=== PATIENT | male | born 1990 | race African-American/Black ===

== ENCOUNTER 2017-05-02 15:26 | Inpatient (IN) | payer MEDICAID ==
[~2017-05-02] VITALS: Ht 177.8 cm; Wt 86.2 kg
[2017-05-02] MEDS ORDERED: PHEN100C4 PO (15:30)
[2017-05-02] MEDS ORDERED: KEPP500 PO (15:30)
[2017-05-02] MEDS ORDERED: SODIUM CHLORIDE 0.9% 1,000 ML IV ONE (15:54)
[2017-05-02] MEDS ORDERED: LORAZEPAM 2MG/ML CPJ IM ONE (16:00)
[2017-05-02] MEDS ORDERED: LORAZEPAM 2MG/ML CPJ ONE (16:02)
[2017-05-02] MEDS ORDERED: MIDAZOLAM HCL 2 MG/2 ML VIAL IV ONE (18:30)
[2017-05-02 18:49] LABS: BASOPHILS % 0.8 % (0.0-2.0); EOSINOPHILS % 0.1 % (0.0-5.0); HEMATOCRIT. 43.5 % (42.0-52.0); HEMOGLOBIN. 14.4 g/dL (14.0-18.0); LYMPHOCYTES % 10.8 % (20.0-50.0); MEAN CORPUSCULAR HEMOGLOBIN 31.5 pg (28.0-32.0); MEAN PLATELET VOLUME 8.1 fl (7.4-10.4); MONOCYTES % 5.8 % (2.0-8.0); NEUTROPHILS % 82.5 % (40.0-76.0); PLATELET 234 x1000/uL (130-400); RED BLOOD CELL COUNT 4.58 mill/uL (4.7-6.1); RED CELL DISTRIBUTION WIDTH 14.2 % (11.6-14.6)
[2017-05-02 18:55] LABS: PARTIAL THROMBOPLASTIN TIME 26.6 sec (23.4-31.0); PROTHROMBIN TIME 10.4 sec (9.4-11.6)
[2017-05-02 18:56] LABS: CHLORIDE 106 mEq/L (98-107)
[2017-05-02] MEDS ORDERED: LEVETIRACETAM 500MG PREMIX 100 ML IV ONE (19:00)
[2017-05-02] MEDS ORDERED: LEVETIRACETAM 500MG TABLET PO ONE (19:00)
[2017-05-02 19:03] LABS: CARBON DIOXIDE 27 mEq/L (21-32); CREATINE KINASE 523 IU/L (39-308); ETHANOL BLOOD < 10 mg/dL
[2017-05-02 19:05] LABS: TROPONIN I < 0.02 ng/mL (0.00-0.04)
[2017-05-03 01:58] LABS: *AMPHETAMINES SCREEN URINE NEGATIVE (NEGATIVE); *BARBITURATES SCREEN URINE NEGATIVE (NEGATIVE); *BENZODIAZEPINES SCREEN URINE NEGATIVE (NEGATIVE); *COCAINE SCREEN URINE NEGATIVE (NEGATIVE); CANNABINOID URINE SCREEN PRESUMTIVE POSITIVE (NEGATIVE); METHADONE URINE SCREEN NEGATIVE (NEGATIVE); OPIATES URINE SCREEN NEGATIVE (NEGATIVE); PHENCYCLIDINE URINE SCREEN NEGATIVE (NEGATIVE)
[2017-05-03 02:23] VITALS: BP 99/46
[2017-05-03] MEDS ORDERED: SODIUM POLYSTYRENE SULFONATE 15 G/60 ML BOT PO NR (03:45)
[2017-05-03] MEDS ORDERED: LORAZEPAM 1MG TABLET PO PRN (03:45)
[2017-05-03 04:00] VITALS: BP 122/68
[2017-05-03] MEDS ORDERED: LEVETIRACETAM 500MG TABLET PO SCH (09:00)
== END 2017-05-03 06:44 | disposition left against medical advice (07) | DRG 53 ==
LOC: ER 15:29 → 6WST 18:47 → ENRESERV 05-03 00:07
PROVIDERS: ADMIT Internal Medicine; ATTEND Internal Medicine
DX: G40.89 Other seizures (principal); Z88.6 Allergy status to analgesic agent; Z53.21 Procedure and treatment not carried out due to patient leaving prior to being seen by health care provider; Z79.899 Other long term (current) drug therapy
CPT/HCPCS: 36415; 70450; 80053; 80185; 80305; 82550; 83690; 84484; 85025; 85610; 85730; 96365; 99291; G0482; J1953; J2060; J7030

== ENCOUNTER 2017-06-14 17:13 | Emergency (ER) | payer MEDICAID ==
[~2017-06-14] VITALS: Ht 182.9 cm; Wt 90.0 kg
[~2017-06-14 17:13] MED LIST: KEPP500 PO; PHEN100C4 PO
[2017-06-14 19:21] LABS: BASOPHILS % 1.2 % (0.0-2.0); EOSINOPHILS % 3.2 % (0.0-5.0); HEMATOCRIT. 41.8 % (42.0-52.0); LYMPHOCYTES % 37.1 % (20.0-50.0); MEAN CORPUSCULAR VOLUME 95.2 fL (80.0-94.0); MONOCYTES % 9.9 % (2.0-8.0); NEUTROPHILS % 48.6 % (40.0-76.0); PLATELET 211 x1000/uL (130-400); RED BLOOD CELL COUNT 4.39 mill/uL (4.7-6.1); RED CELL DISTRIBUTION WIDTH 13.6 % (11.6-14.6)
[2017-06-14 19:24] LABS: CHLORIDE 105 mEq/L (98-107)
[2017-06-14 19:31] LABS: CARBON DIOXIDE 29 mEq/L (21-32)
[2017-06-14] MEDS ORDERED: LEVETIRACETAM 500MG PREMIX 100 ML IV NR (20:45)
[2017-06-14] MEDS ORDERED: SODIUM CHLORIDE 0.9% 1,000 ML IV NR (20:45)
[2017-06-14] MEDS ORDERED: METOCLOPRAMIDE HCL 10MG/2ML VIAL IV NR (20:45)
[2017-06-14] MEDS ORDERED: DIPHENHYDRAMINE 50MG/ML VIAL IV NR (20:45)
[2017-06-14] MEDS ORDERED: FENTANYL CITRATE/PF 50MCG/ML 2ML VIAL IV NR (20:45)
[2017-06-14 23:00] VITALS: BP 122/74
== END 2017-06-14 23:30 | disposition home or self-care (01) ==
LOC: ER 17:13
DX: G40.909 Epilepsy, unspecified, not intractable, without status epilepticus (principal); K40.90 Unilateral inguinal hernia, without obstruction or gangrene, not specified as recurrent; R51 Headache; Z88.6 Allergy status to analgesic agent; Z88.5 Allergy status to narcotic agent; Z91.14 Patient's other noncompliance with medication regimen
CPT/HCPCS: 36415; 80053; 85025; 96361; 96365; 96375; 99284; J1200; J1953; J3010

== ENCOUNTER 2017-06-17 11:08 | Emergency (ER) | payer MEDICAID ==
[~2017-06-17] VITALS: Ht 177.8 cm; Wt 68.0 kg
[2017-06-17] MEDS ORDERED: SODIUM CHLORIDE 0.9% 1,000 ML IV ONE (11:21)
[2017-06-17] MEDS ORDERED: LEVETIRACETAM 500MG PREMIX 100 ML IV ONE (11:30)
[2017-06-17 11:37] LABS: BASOPHILS % 0.3 % (0.0-2.0); EOSINOPHILS % 0.1 % (0.0-5.0); HEMATOCRIT. 47.2 % (42.0-52.0); HEMOGLOBIN. 15.7 g/dL (14.0-18.0); LYMPHOCYTES % 7.9 % (20.0-50.0); MEAN CORPUSCULAR HEMOGLOBIN 31.9 pg (28.0-32.0); MEAN CORPUSCULAR VOLUME 95.9 fL (80.0-94.0); MEAN PLATELET VOLUME 7.8 fl (7.4-10.4); MONOCYTES % 6.9 % (2.0-8.0); NEUTROPHILS % 84.8 % (40.0-76.0); PLATELET 227 x1000/uL (130-400); RED BLOOD CELL COUNT 4.92 mill/uL (4.7-6.1); RED CELL DISTRIBUTION WIDTH 13.8 % (11.6-14.6)
[2017-06-17 11:56] LABS: CARBON DIOXIDE 25 mEq/L (21-32); CHLORIDE 102 mEq/L (98-107); ETHANOL BLOOD < 10 mg/dL
[2017-06-17 11:57] LABS: CARBAMAZEPINE < 0.5 ug/mL (4-12); PHENOBARBITAL < 2.1 ug/mL (15.0-40.0); VALPROIC ACID < 3.0 ug/mL (50-100)
[2017-06-17] MEDS ORDERED: PHENYTOIN SODIUM EXTENDED 100MG CAPSULE PO ONE (12:30)
[2017-06-17] MEDS ORDERED: ACETAMINOPHEN 325MG TABLET PO ONE (12:30)
[2017-06-17 12:48] LABS: CREATINE KINASE 2635 IU/L (39-308)
[2017-06-17 13:05] VITALS: BP 140/72
== END 2017-06-17 13:05 | disposition home or self-care (01) ==
LOC: ER 11:16
DX: G40.909 Epilepsy, unspecified, not intractable, without status epilepticus (principal); R51 Headache; R79.89 Other specified abnormal findings of blood chemistry; Z88.5 Allergy status to narcotic agent; Z88.6 Allergy status to analgesic agent; M54.2 Cervicalgia
CPT/HCPCS: 36415; 80053; 80156; 80165; 80184; 80185; 82550; 84443; 85025; 93005; 96365; 99285; G0482; J1953; J7030

== ENCOUNTER 2018-07-20 13:44 | Emergency (ER) | payer MEDICAID ==
[~2018-07-20] VITALS: Ht 177.8 cm; Wt 100.0 kg
[2018-07-20 14:25] LABS: CLARITY URINE CLEAR (CLEAR); COLOR URINE YELLOW (YELLOW); KETONES URINE NEGATIVE (NEGATIVE); LEUKOCYTE ESTERASE URINE NEGATIVE (NEGATIVE); NITRITE URINE NEGATIVE (NEGATIVE); OCCULT BLOOD URINE NEGATIVE (NEGATIVE); PROTEIN URINE NEGATIVE (NEGATIVE); SPECIFIC GRAVITY URINE 1.014 (1.005-1.030); UROBILINOGEN URINE 0.2 E.U./dL (0.2-1.0)
[2018-07-20 14:41] LABS: *COCAINE SCREEN URINE NEGATIVE (NEGATIVE); CANNABINOID URINE SCREEN PRESUMTIVE POSITIVE (NEGATIVE); METHADONE URINE SCREEN NEGATIVE (NEGATIVE); OPIATES URINE SCREEN NEGATIVE (NEGATIVE); PHENCYCLIDINE URINE SCREEN PRESUMTIVE POSITIVE (NEGATIVE)
[2018-07-20 14:42] LABS: *AMPHETAMINES SCREEN URINE NEGATIVE (NEGATIVE)
[2018-07-20 14:43] LABS: *BARBITURATES SCREEN URINE NEGATIVE (NEGATIVE)
[2018-07-20 14:44] LABS: *BENZODIAZEPINES SCREEN URINE NEGATIVE (NEGATIVE)
[2018-07-20] MEDS ORDERED: SODIUM CHLORIDE 0.9% 1,000 ML IV ONE (15:53)
[2018-07-20] MEDS ORDERED: LORAZEPAM 2MG/ML CPJ IV ONE (16:00)
[2018-07-20] MEDS ORDERED: LEVETIRACETAM 500MG PREMIX 100 ML IV ONE (16:00)
[2018-07-20] MEDS ORDERED: LORAZEPAM 2MG/ML CPJ IM STA (16:10)
[2018-07-20 16:25] LABS: CHLORIDE 107 mEq/L (98-107)
[2018-07-20 16:29] LABS: ETHANOL BLOOD < 10 mg/dL
[2018-07-20] MEDS ORDERED: PHENYTOIN SODIUM 1,000 MG in SODIUM CHLORIDE 0.9% 100 ML IV ONE (17:00)
[2018-07-20 17:34] LABS: BASOPHILS % 1.7 % (0.0-2.0); EOSINOPHILS % 0.9 % (0.0-5.0); HEMATOCRIT. 46.2 % (42.0-52.0); HEMOGLOBIN. 15.2 g/dL (14.0-18.0); LYMPHOCYTES % 36.6 % (20.0-50.0); MEAN CORPUSCULAR VOLUME 94.3 fL (80.0-94.0); MONOCYTES % 9.4 % (2.0-8.0); NEUTROPHILS % 51.4 % (40.0-76.0); PLATELET 218 x1000/uL (130-400); RED CELL DISTRIBUTION WIDTH 13.1 % (11.6-14.6)
[2018-07-20 17:38] LABS: CHLORIDE 107 mEq/L (98-107)
[2018-07-20 20:03] VITALS: BP 128/77
== END 2018-07-20 20:07 | disposition home or self-care (01) ==
LOC: ER 13:44
DX: G40.909 Epilepsy, unspecified, not intractable, without status epilepticus (principal); S09.8XXA Other specified injuries of head, initial encounter; F16.129 Hallucinogen abuse with intoxication, unspecified; S50.312A Abrasion of left elbow, initial encounter; E87.5 Hyperkalemia; Z88.5 Allergy status to narcotic agent; Z88.6 Allergy status to analgesic agent; W01.0XXA Fall on same level from slipping, tripping and stumbling without subsequent striking against object, initial encounter; Y93.89 Activity, other specified; Y92.488 Other paved roadways as the place of occurrence of the external cause
CPT/HCPCS: 36415; 70450; 73080; 80048; 80053; 80185; 80305; 80320; 81003; 85025; 96374; 99284; J1165; J1953; J2060; J7030; J7050; G0480

== ENCOUNTER 2020-02-22 16:00 | Emergency (ER) | payer MEDICAID, OTHER ==
[~2020-02-22] VITALS: Ht 188 cm; Wt 100.0 kg
[2020-02-22] MEDS ORDERED: LEVETIRACETAM 1000MG/100ML 100 ML IV ONE (17:30)
[2020-02-22 18:05] LABS: CLARITY URINE CLEAR (CLEAR); COLOR URINE YELLOW (YELLOW); KETONES URINE TRACE (NEGATIVE); LEUKOCYTE ESTERASE URINE NEGATIVE (NEGATIVE); OCCULT BLOOD URINE 1+ (NEGATIVE); PROTEIN URINE TRACE (NEGATIVE); SPECIFIC GRAVITY URINE 1.017 (1.005-1.030); UROBILINOGEN URINE 0.2 E.U./dL (0.2-1.0)
[2020-02-22 18:16] LABS: *AMPHETAMINES SCREEN URINE PRESUMTIVE POSITIVE (NEGATIVE); *BARBITURATES SCREEN URINE NEGATIVE (NEGATIVE); *BENZODIAZEPINES SCREEN URINE PRESUMTIVE POSITIVE (NEGATIVE); *COCAINE SCREEN URINE NEGATIVE (NEGATIVE); METHADONE URINE SCREEN NEGATIVE (NEGATIVE); OPIATES URINE SCREEN NEGATIVE (NEGATIVE)
[2020-02-22 18:18] LABS: CHLORIDE 108 mEq/L (98-107)
[2020-02-22 18:18] LABS: CANNABINOID URINE SCREEN PRESUMTIVE POSITIVE (NEGATIVE); PHENCYCLIDINE URINE SCREEN NEGATIVE (NEGATIVE)
[2020-02-22 18:21] LABS: ETHANOL BLOOD < 10 mg/dL
[2020-02-22 19:40] LABS: BASOPHILS % 0.3 % (0.0-2.0); EOSINOPHILS % 0.1 % (0.0-5.0); HEMATOCRIT. 43.7 % (42.0-52.0); HEMOGLOBIN. 14.4 g/dL (14.0-18.0); LYMPHOCYTES % 8.2 % (20.0-50.0); MEAN CORPUSCULAR HEMOGLOBIN 31.5 pg (28.0-32.0); MEAN CORPUSCULAR VOLUME 95.6 fL (80.0-94.0); MEAN PLATELET VOLUME 8.7 fl (7.4-10.4); MONOCYTES % 6.8 % (2.0-8.0); NEUTROPHILS % 84.6 % (40.0-76.0); PLATELET 193 x1000/uL (130-400); RED BLOOD CELL COUNT 4.57 mill/uL (4.7-6.1); RED CELL DISTRIBUTION WIDTH 13.9 % (11.6-14.6)
[2020-02-22] MEDS ORDERED: PHENYTOIN 100 MG/4 ML UDC PO ONE (20:00)
[2020-02-22] MEDS ORDERED: PHENYTOIN SODIUM EXTENDED 100MG CAPSULE PO ONE (20:00)
[2020-02-22] MEDS ORDERED: LEVETIRACETAM 500MG TABLET PO ONE (20:15)
[2020-02-22 20:55] VITALS: BP 122/77
== END 2020-02-22 21:00 | disposition home or self-care (01) ==
LOC: ER 16:00
DX: G40.909 Epilepsy, unspecified, not intractable, without status epilepticus (principal); Z88.6 Allergy status to analgesic agent
CPT/HCPCS: 36415; 71045; 80053; 80185; 80305; 80320; 81003; 85025; 96365; 96366; 99285; J1953; G0480

== ENCOUNTER 2020-02-25 19:22 | Emergency (ER) | payer OTHER | END 2020-02-25 20:56 | disposition left against medical advice (07) | LOC: ER 19:22 | DX: Z53.21 Procedure and treatment not carried out due to patient leaving prior to being seen by health care provider (principal) ==

== ENCOUNTER 2022-01-14 08:47 | Emergency (ER) | payer OTHER ==
[~2022-01-14] VITALS: Ht 167.6 cm; Wt 78.0 kg
[2022-01-14 10:11] LABS: CHLORIDE 107 mEq/L (98-107)
[2022-01-14 10:17] LABS: BASOPHILS % 1.4 % (0.0-2.0); EOSINOPHILS % 4.4 % (0.0-5.0); HEMOGLOBIN. 14.2 g/dL (14.0-18.0); LYMPHOCYTES % 39.7 % (20.0-50.0); MEAN CORPUSCULAR HEMOGLOBIN 33.1 pg (28.0-32.0); MEAN CORPUSCULAR VOLUME 98.2 fL (80.0-94.0); MEAN PLATELET VOLUME 8.9 fl (7.4-10.4); MONOCYTES % 11.9 % (2.0-8.0); NEUTROPHILS % 42.6 % (40.0-76.0); PLATELET 197 x1000/uL (130-400); RED BLOOD CELL COUNT 4.28 mill/uL (4.7-6.1); RED CELL DISTRIBUTION WIDTH 13.5 % (11.6-14.6)
[2022-01-14] MEDS ORDERED: CYCL10TA21 MT (10:26)
[2022-01-14] MEDS: DIVALPROEX SODIUM 500MG DR TABLET PO ONE (10:30)
[2022-01-14] MEDS ORDERED: KEPP500 MT (10:41)
[2022-01-14] MEDS ORDERED: VALP250C3 MT (10:41)
[2022-01-14] MEDS: ACETAMINOPHEN 325MG TABLET PO ONE (10:47)
[2022-01-14 10:50] VITALS: BP 130/77
== END 2022-01-14 11:50 | disposition home or self-care (01) ==
LOC: ER 08:47
DX: M54.16 Radiculopathy, lumbar region (principal); G40.909 Epilepsy, unspecified, not intractable, without status epilepticus; J45.909 Unspecified asthma, uncomplicated; Z87.19 Personal history of other diseases of the digestive system; Z88.5 Allergy status to narcotic agent; Z88.6 Allergy status to analgesic agent; Z91.018 Allergy to other foods
CPT/HCPCS: 36415; 72131; 80053; 80165; 85025; 99284

== ENCOUNTER 2022-01-14 23:27 | Emergency (ER) | payer OTHER ==
[~2022-01-14] VITALS: Ht 182.9 cm; Wt 92.0 kg
[~2022-01-14 23:27] MED LIST changes: +CYCL10TA21 MT; +KEPP500 MT; +VALP250C3 MT
[2022-01-15] MEDS: MIDAZOLAM HCL 2 MG/2 ML VIAL IV ONE (02:05)
[2022-01-15 04:00] VITALS: BP 116/62
[2022-01-15] MEDS: PHENYTOIN SODIUM 500 MG in SODIUM CHLORIDE 0.9% 50 ML IV NR (04:32)
[2022-01-16] MEDS ORDERED: ALPR2TAB2 PO (18:26)
== END 2022-01-15 07:04 | disposition home or self-care (01) ==
LOC: ER 23:27
DX: G40.909 Epilepsy, unspecified, not intractable, without status epilepticus (principal); R51.9 Headache, unspecified; J45.909 Unspecified asthma, uncomplicated; Z79.899 Other long term (current) drug therapy; Z88.5 Allergy status to narcotic agent; Z88.6 Allergy status to analgesic agent
CPT/HCPCS: 36415; 80165; 80185; 96365; 96375; 99284; J1165; J2250

== ENCOUNTER 2022-01-15 11:57 | Inpatient (IN) | payer MEDICAID, OTHER ==
[~2022-01-15] VITALS: Ht 182.9 cm; Wt 86.2 kg
[2022-01-15] MEDS ORDERED: MIDAZOLAM HCL 2 MG/2 ML VIAL ONE (12:09)
[2022-01-15] MEDS ORDERED: ONDANSETRON HCL 4MG/2ML INJ IV STA (12:13)
[2022-01-15] MEDS ORDERED: SODIUM CHLORIDE 0.9% 1,000 ML IV ONE (12:15)
[2022-01-15] MEDS ORDERED: LEVETIRACETAM 1000MG PREMIX 100 ML IV ONE (12:15)
[2022-01-15] MEDS ORDERED: HALOPERIDOL LACTATE 5MG/ML VIAL IM ONE (12:30)
[2022-01-15] MEDS ORDERED: MIDAZOLAM HCL 2 MG/2 ML VIAL IM ONE (12:30)
[2022-01-15 13:18] LABS: BASOPHILS % 0.6 % (0.0-2.0); EOSINOPHILS % 1.9 % (0.0-5.0); HEMATOCRIT. 50.8 % (42.0-52.0); HEMOGLOBIN. 15.7 g/dL (14.0-18.0); LYMPHOCYTES % 50.2 % (20.0-50.0); MEAN CORPUSCULAR HEMOGLOBIN 33.7 pg (28.0-32.0); MEAN CORPUSCULAR VOLUME 109.4 fL (80.0-94.0); MEAN PLATELET VOLUME 8.5 fl (7.4-10.4); MONOCYTES % 10.7 % (2.0-8.0); NEUTROPHILS % 36.6 % (40.0-76.0); PLATELET 260 x1000/uL (130-400); RED BLOOD CELL COUNT 4.64 mill/uL (4.7-6.1); RED CELL DISTRIBUTION WIDTH 15.1 % (11.6-14.6)
[2022-01-15 13:22] LABS: CHLORIDE 104 mEq/L (98-107)
[2022-01-15 13:32] LABS: ETHANOL BLOOD < 10 mg/dL; PHOSPHORUS 4.2 mg/dL (2.5-4.9)
[2022-01-15] MEDS ORDERED: ACETAMINOPHEN 325MG TABLET PO PRN (16:45)
[2022-01-15] MEDS ORDERED: IPRATROPIUM/ALBUTEROL 0.5-3(2.5)MG/3ML NEB HHN PRN (16:45)
[2022-01-15] MEDS ORDERED: ONDANSETRON HCL 4MG/2ML INJ IV PRN (16:45)
[2022-01-15 16:48] LABS: CLARITY URINE CLEAR (CLEAR); COLOR URINE YELLOW (YELLOW); KETONES URINE TRACE (NEGATIVE); LEUKOCYTE ESTERASE URINE NEGATIVE (NEGATIVE); NITRITE URINE NEGATIVE (NEGATIVE); OCCULT BLOOD URINE TRACE (NEGATIVE); PROTEIN URINE TRACE (NEGATIVE); SPECIFIC GRAVITY URINE 1.014 (1.005-1.030); UROBILINOGEN URINE 0.2 E.U./dL (0.2-1.0)
[2022-01-15 17:00] VITALS: BP 118/75
[2022-01-15 17:03] LABS: *AMPHETAMINES SCREEN URINE NEGATIVE (NEGATIVE); *BARBITURATES SCREEN URINE NEGATIVE (NEGATIVE); *BENZODIAZEPINES SCREEN URINE PRESUMTIVE POSITIVE (NEGATIVE); *COCAINE SCREEN URINE PRESUMTIVE POSITIVE (NEGATIVE); CANNABINOID URINE SCREEN PRESUMTIVE POSITIVE (NEGATIVE); METHADONE URINE SCREEN NEGATIVE (NEGATIVE); OPIATES URINE SCREEN NEGATIVE (NEGATIVE); PHENCYCLIDINE URINE SCREEN NEGATIVE (NEGATIVE)
[2022-01-15 17:30] VITALS: BP 118/75
[2022-01-15] MEDS: ENOXAPARIN 40MG/0.4ML SYR SUBCUT SCH (18:10)
[2022-01-15] MEDS ORDERED: PHENYTOIN SODIUM EXTENDED 100MG CAPSULE PO NR (19:30)
[2022-01-15 20:00] VITALS: BP 113/54
[2022-01-15] MEDS: PHENYTOIN SODIUM EXTENDED 100MG CAPSULE PO SCH (21:13)
[2022-01-15] MEDS: LEVETIRACETAM 500MG TABLET PO SCH (21:13)
[2022-01-15] MEDS: HYDROCODONE/ACETAMINOPHEN 5/325MG TABLET PO PRN (21:15)
[2022-01-16] VITALS: BP 100/77
[2022-01-16] MEDS ORDERED: DIPHENHYDRAMINE 25MG CAPSULE PO PRN (00:45)
[2022-01-16 04:00] VITALS: BP 113/62
[2022-01-16] MEDS: PHENYTOIN SODIUM EXTENDED 100MG CAPSULE PO SCH ×3 (05:10→21:48)
[2022-01-16 08:00] VITALS: BP 130/79
[2022-01-16 08:39] LABS: CREATINE KINASE MB FRACTION 2.5 ng/mL (0.5-3.6)
[2022-01-16 08:41] LABS: CHLORIDE 108 mEq/L (98-107)
[2022-01-16] MEDS: LEVETIRACETAM 500MG TABLET PO SCH ×2 (08:49→21:47)
[2022-01-16] MEDS: VALPROIC ACID 250MG CAPSULE PO SCH ×2 (08:49→17:17)
[2022-01-16] MEDS: HYDROCODONE/ACETAMINOPHEN 5/325MG TABLET PO PRN ×3 (08:55→21:47)
[2022-01-16 12:00] VITALS: BP 121/75
[2022-01-16 13:17] LABS: BASOPHILS % 0.7 % (0.0-2.0); EOSINOPHILS % 0.8 % (0.0-5.0); HEMATOCRIT. 41.3 % (42.0-52.0); HEMOGLOBIN. 13.6 g/dL (14.0-18.0); LYMPHOCYTES % 26.4 % (20.0-50.0); MEAN CORPUSCULAR HEMOGLOBIN 32.7 pg (28.0-32.0); MEAN CORPUSCULAR VOLUME 99.1 fL (80.0-94.0); MEAN PLATELET VOLUME 7.7 fl (7.4-10.4); MONOCYTES % 10.8 % (2.0-8.0); NEUTROPHILS % 61.3 % (40.0-76.0); PLATELET 174 x1000/uL (130-400); RED BLOOD CELL COUNT 4.17 mill/uL (4.7-6.1); RED CELL DISTRIBUTION WIDTH 13.5 % (11.6-14.6)
[2022-01-16 16:00] VITALS: BP 105/63
[2022-01-16] MEDS: ENOXAPARIN 40MG/0.4ML SYR SUBCUT SCH (17:18)
[2022-01-16] MEDS ORDERED: ALPR2TAB2 PO (18:26)
[2022-01-16] MEDS ORDERED: CHLORHEXIDINE GLUCONATE 0.12% MOUTHWASH UDC SSP SCH (18:30)
[2022-01-16] MEDS ORDERED: ALPRAZOLAM 0.5 MG TABLET PO SCH (18:30)
[2022-01-16 20:00] VITALS: BP_SYST 107; BP_SYST 117; BP_DIAS 41; BP_DIAS 71
[2022-01-16] MEDS ORDERED: VALPROIC ACID 250MG CAPSULE PO SCH (21:30)
[2022-01-17 00:05] VITALS: BP 98/56
== END 2022-01-17 00:20 | disposition home or self-care (01) | DRG 53 ==
LOC: ER 13:06 → 8WST 15:05 → EDBEDREQ 15:09 → ENRESERV 15:56
PROVIDERS: ADMIT Internal Medicine; ATTEND Internal Medicine
DX: G40.901 Epilepsy, unspecified, not intractable, with status epilepticus (principal); N17.9 Acute kidney failure, unspecified; E87.2 Acidosis; F19.90 Other psychoactive substance use, unspecified, uncomplicated; J45.909 Unspecified asthma, uncomplicated; G43.909 Migraine, unspecified, not intractable, without status migrainosus; M51.27 Other intervertebral disc displacement, lumbosacral region; Z88.6 Allergy status to analgesic agent; Z88.3 Allergy status to other anti-infective agents; Z91.018 Allergy to other foods; Z78.1 Physical restraint status; Z79.899 Other long term (current) drug therapy
CPT/HCPCS: 36415; 71045; 72141; 73110; 80053; 80165; 80185; 80305; 80320; 81003; 82553; 83735; 84100; 84484; 85025; 93005; 99291; J1650; J1953; J2250; J2405; J7030; Q0163; G0480

== ENCOUNTER 2022-02-12 22:49 | Emergency (ER) | payer MEDICAID ==
[~2022-02-12] VITALS: Ht 172.7 cm; Wt 73.0 kg
[~2022-02-12 22:49] MED LIST changes: +ALPR2TAB2 PO
[2022-02-12 23:10] VITALS: BP 149/86
[2022-02-13] MEDS ORDERED: TETANUS, DIPHTHERIA, PERTUSSIS VAC/PF 0.5ML (>10YR OLD) IM ONE (01:15)
[2022-02-13] MEDS ORDERED: CYCLOBENZAPRINE 10MG TABLET PO ONE (01:15)
[2022-02-13] MEDS ORDERED: VALPROIC ACID 250MG CAPSULE PO ONE (01:15)
[2022-02-13] MEDS ORDERED: LEVETIRACETAM 500MG TABLET PO ONE (01:15)
[2022-02-13] MEDS ORDERED: CYCL10TA21 MT (03:10)
== END 2022-02-13 03:42 | disposition home or self-care (01) ==
LOC: ER 22:49
DX: S09.8XXA Other specified injuries of head, initial encounter (principal); S00.83XA Contusion of other part of head, initial encounter; S20.229A Contusion of unspecified back wall of thorax, initial encounter; S00.01XA Abrasion of scalp, initial encounter; R56.9 Unspecified convulsions; F41.9 Anxiety disorder, unspecified; J45.909 Unspecified asthma, uncomplicated; Y08.89XA Assault by other specified means, initial encounter; Y93.9 Activity, unspecified; Y92.89 Other specified places as the place of occurrence of the external cause; Y99.9 Unspecified external cause status; Z88.6 Allergy status to analgesic agent; Z91.018 Allergy to other foods
CPT/HCPCS: 70486; 71045; 90471; 90715; 99284

== ENCOUNTER 2022-02-28 15:41 | Emergency (ER) | payer MEDICAID ==
[~2022-02-28] VITALS: Ht 188 cm; Wt 93.0 kg
[2022-02-28] MEDS ORDERED: MIDAZOLAM HCL 2 MG/2 ML VIAL IM ONE (16:30)
[2022-02-28] MEDS ORDERED: LEVETIRACETAM 500MG PREMIX 100 ML IV ONE (17:45)
[2022-02-28 18:45] LABS: BASOPHILS % 0.3 % (0.0-2.0); EOSINOPHILS % 0.4 % (0.0-5.0); HEMATOCRIT. 50.5 % (42.0-52.0); HEMOGLOBIN. 17.1 g/dL (14.0-18.0); LYMPHOCYTES % 8.2 % (20.0-50.0); MEAN CORPUSCULAR HEMOGLOBIN 33.5 pg (28.0-32.0); MEAN CORPUSCULAR VOLUME 99.1 fL (80.0-94.0); MEAN PLATELET VOLUME 9.2 fl (7.4-10.4); MONOCYTES % 7.6 % (2.0-8.0); NEUTROPHILS % 83.5 % (40.0-76.0); PLATELET 212 x1000/uL (130-400); RED CELL DISTRIBUTION WIDTH 14.2 % (11.6-14.6)
[2022-02-28 18:54] LABS: CHLORIDE 105 mEq/L (98-107)
[2022-02-28] MEDS ORDERED: VALPROIC ACID 250MG CAPSULE PO ONE (19:00)
[2022-02-28] MEDS ORDERED: PHENYTOIN SODIUM EXTENDED 100MG CAPSULE PO ONE (19:00)
[2022-02-28] MEDS ORDERED: LEVETIRACETAM 500MG TABLET PO ONE ×2 (19:00→19:30)
[2022-02-28 19:04] LABS: ETHANOL BLOOD < 10 mg/dL
[2022-02-28 19:51] VITALS: BP 118/70
== END 2022-02-28 19:53 | disposition home or self-care (01) ==
LOC: ER 15:41
DX: R56.9 Unspecified convulsions (principal); F41.9 Anxiety disorder, unspecified; J45.909 Unspecified asthma, uncomplicated; F12.10 Cannabis abuse, uncomplicated; Z79.899 Other long term (current) drug therapy
CPT/HCPCS: 36415; 80053; 80320; 84484; 85025; 93005; 96365; 96372; 99284; J1953; J2250; G0480